=== PATIENT | female | born 1960 | race Caucasian/White ===

== ENCOUNTER 2018-07-25 12:20 | Emergency (ER) | payer MEDICAID ==
[~2018-07-25] VITALS: Ht 162.6 cm; Wt 79.0 kg
[~2018-07-25 12:20] MED LIST: ALBU8HFA PO; CEPH500C5 PO; DOXY100C43 PO; PRED50TA PO
[2018-07-25 12:33] VITALS: BP 109/69
--- NOTE | 2018-07-25 13:11 | NUR ---
Dressing placed to right first finger per orders
== END 2018-07-25 13:14 | disposition home or self-care (01) ==
LOC: ER 12:20
DX: L03.011 Cellulitis of right finger (principal); J45.909 Unspecified asthma, uncomplicated; Z56.0 Unemployment, unspecified; Z88.2 Allergy status to sulfonamides; Z88.8 Allergy status to other drugs, medicaments and biological substances
CPT/HCPCS: 99282

== ENCOUNTER → 2018-08-09 | Emergency (ER) | payer MEDICAID ==
[~2018-08-09] VITALS: Ht 157.5 cm; Wt 74.0 kg
[~2018-08-09] MED LIST changes: +CEPH-572 PO; +cephalexin 250mg capsule PO ONE
[2018-08-09 13:49] VITALS: BP 136/82
[2018-08-09 15:35] LABS: BASOPHILS % (AUTO) 0.5 % (0-1); EOSINOPHILS # (AUTO) 0.2 X10'3 (0-0.9); EOSINOPHILS % (AUTO) 3.8 % (0-6); HEMATOCRIT 37.5 % (35.0-45.0); HEMOGLOBIN 12.5 g/dl (12.0-16.0); LYMPHOCYTES # (AUTO) 1.5 X10'3 (1.1-4.8); LYMPHOCYTES % (AUTO) 31.8 % (21-51); MEAN CORPUSCULAR HEMOGLOBIN 29.3 PG (27.0-31.0); MEAN CORPUSCULAR HGB CONC 33.4 g/dL (33.0-36.5); MEAN CORPUSCULAR VOLUME 87.7 FL (78-98); MEAN PLATELET VOLUME 7.1 FL (7.4-10.4); MONOCYTES # (AUTO) 0.3 X10'3 (0-0.9); MONOCYTES % (AUTO) 6.4 % (2-12); NEUTROPHILS # (AUTO) 2.8 X10'3 (1.8-7.7); NEUTROPHILS % (AUTO) 57.5 % (42-75); PLATELET COUNT 382 X10'3 (140-440); RED BLOOD COUNT 4.28 X10'6 (4.20-5.60); RED CELL DISTRIBUTION WIDTH 13.1 % (11.5-14.5); WHITE BLOOD COUNT 4.8 X10'3 (4.5-11.0)
[2018-08-09 15:41] LABS: ALBUMIN 3.7 G/DL (3.4-5.0); ANION GAP 10 (8-16); BLOOD UREA NITROGEN 15 MG/DL (7-18); BUN/CREATININE RATIO 13.3 (6.6-38.0); C-REACTIVE PROTEIN 0.33 MG/DL (0.0-0.5); CALCIUM 9.4 MG/DL (8.5-10.1); CHLORIDE 102 MMOL/L (99-107); CREATININE 1.13 MG/DL (0.40-0.90); GLUCOSE 95 MG/DL (70-104); POTASSIUM 3.6 MMOL/L (3.5-5.1); SODIUM 141 MMOL/L (135-145); eGFR 50 ML/MIN
== END | disposition home or self-care (01) ==
LOC: ER 13:09
DX: L03.011 Cellulitis of right finger (principal); J45.909 Unspecified asthma, uncomplicated; Z88.2 Allergy status to sulfonamides; Z88.8 Allergy status to other drugs, medicaments and biological substances; Z79.899 Other long term (current) drug therapy; Z56.0 Unemployment, unspecified
CPT/HCPCS: 29130; 36415; 73140; 80048; 85025; 85651; 86140; 99284

== ENCOUNTER 2019-10-03 12:22 | Emergency (ER) | payer MEDICAID ==
[~2019-10-03] VITALS: Ht 162.6 cm; Wt 82.3 kg
[~2019-10-03 12:22] MED LIST changes: -CEPH-572 PO; -CEPH500C5 PO; -DOXY100C43 PO; -cephalexin 250mg capsule PO ONE
[2019-10-03 12:26] VITALS: BP 182/150
[2019-10-03] MEDS ORDERED: LIDOcaine 5% patch TP STA (13:44)
[2019-10-03] MEDS ORDERED: IBUP-1985 PO (13:52)
[2019-10-03] MEDS ORDERED: LIDO700A32 TOP (13:52)
== END 2019-10-03 14:17 | disposition home or self-care (01) ==
LOC: ER 12:22
DX: M25.511 Pain in right shoulder (principal); J45.909 Unspecified asthma, uncomplicated; F32.9 Major depressive disorder, single episode, unspecified; F41.9 Anxiety disorder, unspecified; Z56.0 Unemployment, unspecified; Z88.8 Allergy status to other drugs, medicaments and biological substances; Z88.2 Allergy status to sulfonamides; Z79.899 Other long term (current) drug therapy; W18.39XA Other fall on same level, initial encounter; Y93.89 Activity, other specified; Y92.89 Other specified places as the place of occurrence of the external cause; Y99.8 Other external cause status
CPT/HCPCS: 73030; 99283

== ENCOUNTER 2021-12-17 15:33 | Emergency (ER) | payer MEDICAID ==
[~2021-12-17] VITALS: Ht 162.6 cm; Wt 87.3 kg
[~2021-12-17 15:33] MED LIST changes: +IBUP-1985 PO; +LIDO700A32 TOP
[2021-12-17 15:48] VITALS: BP 142/92
== END 2021-12-18 06:30 | disposition left against medical advice (07) ==
LOC: ER 15:34
DX: J00 Acute nasopharyngitis [common cold] (principal); Z53.21 Procedure and treatment not carried out due to patient leaving prior to being seen by health care provider

== ENCOUNTER 2025-06-20 14:36 | Outpatient (CLI) | payer MEDICAID ==
[~2025-06-20 14:36] MED LIST changes: -IBUP-1985 PO; +IBUP600T52 PO; +LIDO-52 TOP; -LIDO700A32 TOP
--- NOTE | 2025-06-20 16:30 | RADIOLOGY REPORT ---
PROCEDURE: MR MRI LUMBAR SPINE INDICATION: OT INTVRT DISC DEGEN, LUM RGN W/O LUM BCK OR LW EXTRM PAIN Exam Date: 06/20/2025 02:42 PM COMPARISON: None TECHNIQUE: MRI lumbar spine without intravenous contrast. FINDINGS: Multilevel disc degeneration. Alignment: Grade 1 retrolisthesis of L2 on L3. Vertebrae: Vertebral body height is well maintained without evidence of a recent compression fracture. Conus: Conus medullaris terminates at the L2 level. T12-L1: The disc configuration is normal. No spinal canal or neural foraminal stenosis. The facet joints are normal. L1-2: The disc configuration is normal. No spinal canal or neural foraminal stenosis. Facet arthrosis. L2-3: Grade 1 retrolisthesis of L2 on L3 by 3 mm. Disc desiccation. Disc bulge with superimposed central disc protrusion. No spinal canal or neural foraminal stenosis. Facet arthrosis. L3-4: Disc desiccation. No spinal canal or neural foraminal stenosis. Facet arthrosis. L4-5: Disc desiccation. No spinal canal or neural foraminal stenosis. Facet arthrosis. L5-S1: The disc configuration is normal. No spinal canal or neural foraminal stenosis. Facet arthrosis. IMPRESSION: 1. Multilevel disc degeneration. 2. 4 mm disc bulge with superimposed central disc protrusion at L2-L3 without significant spinal canal or foraminal stenosis. 3. Grade 1 retrolisthesis of L2 on L3.
== END 2025-06-20 23:59 | disposition home or self-care (01) ==
LOC: MRI02 14:36
PROVIDERS: ATTEND Nurse Practitioner
DX: M51.16 Intervertebral disc disorders with radiculopathy, lumbar region (principal); M48.061 Spinal stenosis, lumbar region without neurogenic claudication
CPT/HCPCS: 72148